=== PATIENT | female | born 1970 | race Two or more races ===

== ENCOUNTER 2021-03-03 07:17 | Outpatient (CLI) | payer OTHER | END 2021-03-03 07:24 | disposition home or self-care (01) | LOC: SONOGRAMA 07:17 → MAMO-SONO 07:30 | PROVIDERS: ATTEND Internal Medicine Gastroenterology | DX: R10.13 Epigastric pain (principal) ==

== ENCOUNTER 2021-05-01 07:40 | Outpatient (CLI) | payer OTHER | END 2021-05-01 07:52 | disposition home or self-care (01) | LOC: MRI 07:40 | PROVIDERS: ATTEND Internal Medicine | DX: M54.2 Cervicalgia (principal) | CPT/HCPCS: 72141 ==

== ENCOUNTER 2021-07-10 07:05 | Outpatient (CLI) | payer OTHER | END 2021-07-10 11:09 | disposition home or self-care (01) | LOC: LAB 07:05 | PROVIDERS: ATTEND Internal Medicine Gastroenterology | DX: R10.13 Epigastric pain (principal) ==

== ENCOUNTER 2021-08-31 08:56 | Outpatient (CLI) | payer OTHER | END 2021-08-31 09:00 | disposition home or self-care (01) | LOC: NUCLEAR 08:56 | PROVIDERS: ATTEND Internal Medicine | DX: R00.0 Tachycardia, unspecified (principal) ==

== ENCOUNTER 2025-02-24 11:15 | Outpatient (CLI) | payer OTHER | END 2025-02-24 11:17 | disposition home or self-care (01) | LOC: MRI 11:15 | PROVIDERS: ATTEND Internal Medicine | DX: M54.17 Radiculopathy, lumbosacral region (principal) | CPT/HCPCS: 72148 ==

== ENCOUNTER → 2025-03-18 10:35 | Outpatient (CLI) | payer OTHER ==
[2025-03-18 11:52] LABS: BASO % 0.5 % (0.1-1.2); EOS # 0.04 (0.04-0.54); EOS % 0.7 % (0.7-7.0); LYMPH # 2.15 (1.18-3.74); LYMPH % 35.0 % (19.3-53.1); MEAN PLATELET VOLUME 9.00 fl (9.4-12.4); MONO # 0.57 (0.24-0.82); MONO % 9.3 % (4.7-12.5); NEUT # 3.34 (1.56-6.13); NEUT % 54.2 % (34.0-71.1); RED CELL DISTRIBUTION WIDTH 12.7 % (11.6-14.4)
[2025-03-18 12:26] LABS: ALT/SGPT 32.0 U/L (12-78); AST/SGOT 17.0 U/L (15-37); BILIRUBIN TOTAL 0.6 mg/dL (0.3-1.2); BUN CREA RATIO 27.0 (7.0-25.0); CREATININE SERUM 0.48 mg/dL (0.55-1.02); GFR 133.78; GLOBULINA 3.2 G/DL (2.4-3.5); GLUCOSE FASTING 84.0 mg/dL (65-100); LDH 189.0 U/L (84-246); OSMOLALITY SERUM 282.0 MOSM/KG (275-295)
== END | disposition home or self-care (01) ==
LOC: LAB 10:35
PROVIDERS: ATTEND Internal Medicine Hematology & Oncology
DX: D51.3 Other dietary vitamin B12 deficiency anemia (principal); D53.0 Protein deficiency anemia; F33.9 Major depressive disorder, recurrent, unspecified; E04.0 Nontoxic diffuse goiter; D50.8 Other iron deficiency anemias; I10 Essential (primary) hypertension; R74.02 Elevation of levels of lactic acid dehydrogenase [LDH]; K76.89 Other specified diseases of liver

== ENCOUNTER → 2025-04-15 07:04 | Outpatient (CLI) | payer OTHER | END | disposition home or self-care (01) | LOC: NUCLEAR 07:00 | PROVIDERS: ATTEND Internal Medicine Hematology & Oncology | DX: K82.9 Disease of gallbladder, unspecified (principal); D53.0 Protein deficiency anemia; F33.9 Major depressive disorder, recurrent, unspecified; E04.0 Nontoxic diffuse goiter | CPT/HCPCS: 78227; A9537 ==